=== PATIENT | female | born 1990 | race Caucasian/White ===

== ENCOUNTER 2021-02-05 01:49 | Emergency (ER) | payer BC, OTHER ==
[2021-02-05] MEDS ORDERED: AUGMENTIN 875-1 EACH PO (02:49)
[2021-02-05] MEDS ORDERED: ZOFRAN ODT 4 MG4 MG PO (02:49)
[2021-02-05] MEDS ORDERED: IBUPROFEN800 MG PO (02:49)
== END 2021-02-05 03:34 | disposition home or self-care (01) ==
LOC: ER1 01:49
DX: H66.91 Otitis media, unspecified, right ear (principal)
CPT/HCPCS: 96365; 96375; 99282; J0295; J1885; J2405

== ENCOUNTER → 2021-03-30 | Outpatient (CLI) | payer BC ==
[~2021-03-30] MED LIST: AUGMENTIN 875-1 EACH PO; IBUPROFEN800 MG PO; ZOFRAN ODT 4 MG4 MG PO
== END ==
LOC: KOH-I 03-28 16:00
DX: J32.9 Chronic sinusitis, unspecified (principal); J34.2 Deviated nasal septum
CPT/HCPCS: 70486